=== PATIENT | female | born 1990 | race African-American/Black ===

== ENCOUNTER 2017-06-21 09:21 | Emergency (ER) | payer MEDICAID, OTHER ==
[~2017-06-21] VITALS: Ht 160 cm; Wt 54.4 kg
[2017-06-21 09:24] VITALS: BP 110/70
== END 2017-06-21 09:58 | disposition home or self-care (01) ==
LOC: ER 09:22
DX: J06.9 Acute upper respiratory infection, unspecified (principal)
CPT/HCPCS: 99282; A4606; Z7610